=== PATIENT | female | born 1970 | race Native Hawaiian/Other Pacific Islander ===

== ENCOUNTER 2017-08-11 17:51 | Emergency (ER) | payer BC ==
[2017-08-11 18:13] VITALS: BMI 23.8
[2017-08-11 18:17] VITALS: TEMP 98.2; O2SAT 99
[2017-08-11 19:07] LABS: BASO # 0.02 K/mm3 (0.0-2.0); BASO % 0.1 % (0.0-3.0); EOS % 0.2 % (1.5-5.0); GRAN # 13.32 (1.4-6.5); GRAN % 85.4 % (50.0-68.0); HEMATOCRIT 41.4 % (36.0-48.0); LYMPH # 1.7 (1.2-3.4); MEAN CELL VOLUME 82.3 fl (80.0-105.0); MEAN CORPUSCULAR HEMOGLOBIN 29.8 pg (25.0-35.0); MEAN CORPUSCULAR HGB CONC 36.2 g/dl (31.0-37.0); MEAN PLATELET VOLUME 9.3 fl (7.0-11.0); MONO # 0.5 (0.1-0.6); MONO % 3.3 % (1.0-6.0); RED CELL DISTRIBUTION WIDTH 12.6 % (11.5-14.5); WHITE BLOOD COUNT 15.6 10^3/ul (4.5-11.0)
[2017-08-11 19:14] LABS: INR 0.99 (0.93-1.08); PARTIAL THROMBOPLASTIN TIME 29.9 Seconds (23.7-30.8)
[2017-08-11 19:21] LABS: URINE BILIRUBIN NEGATIVE (NEGATIVE); URINE BLOOD MODERATE (NEGATIVE); URINE GLUCOSE (UA) NEGATIVE (NEGATIVE); URINE KETONE 15 mg/dL (NEGATIVE); URINE LEUKOCYTE ESTERASE NEGATIVE Leu/uL (NEGATIVE); URINE PROTEIN NEGATIVE mg/dL (<30 mg/dL); URINE UROBILINOGEN 0.2 E.U./dL (<1 E.U./dL)
[2017-08-11 19:26] LABS: ALB/GLOB RATIO 1.1 (1.1-1.8); ALKALINE PHOSPHATASE 87 U/L (38-126); ALT/SGPT 32 U/L (7-56); AST/SGOT 38 U/L (14-36); BLOOD UREA NITROGEN 12 mg/dL (7-21); CALCIUM 10.2 mg/dL (8.4-10.5); CARBON DIOXIDE 30 mmol/L (21-33); CHLORIDE 91 mmol/L (95-110); GFR AFRICAN-AMERICAN > 60; GLUCOSE,RANDOM 130 mg/dL (70-110); SODIUM 138 mmol/L (132-148); TOTAL PROTEIN 9.3 g/dL (5.8-8.3)
[2017-08-11 19:28] LABS: URINE APPEARANCE SL CLOUDY (CLEAR); URINE COLOR YELLOW (YELLOW)
[2017-08-11 19:31] LABS: URINE EPITHELIAL CELLS 0 - 2 /hpf (0-5); URINE WBC 0 - 2 /hpf (0-6)
[2017-08-11 20:09] VITALS: BP 154/82; PULSE 89; RESP 16
--- NOTE | 2017-08-11 20:30 | ED PDOC ---
Arrival/HPI - General Chief Complaint: Female Genitourinary Time Seen by Provider: 08/11/17 18:23 Historian: Patient - History of Present Illness Narrative History of Present Illness (Text): 08/11/17 20:31 A 47 year old female, whose past medical history includes uterine prolapse, presents to the emergency department complaining of suprapubic pain. Patient reports she went to [facility] for yearly routine pap smear exam. Notes that she had swab done and then reduced uterine prolapse. Patient felt fine and went home. At home she reports sudden, onset suprapubic pain, described as intense and constant. Patient also feels she has to go to the bathroom, but no urine comes out. No similar symptoms in the past. No urinary incontinence, back pain, nausea , vomiting or any other complaints at this time. Symptom Onset: Sudden Symptom Course: Unchanged Activities at Onset: Rest Context: Home Past Medical History - Provider Review Nursing Documentation Reviewed: Yes - Infectious Disease Hx of Infectious Diseases: None - Cardiac Hx Hypertension: Yes - Psychiatric Hx Substance Use: No - Surgical History Hx Cholecystectomy: Yes - Anesthesia Hx Anesthesia: Yes Hx Anesthesia Reactions: No Hx Malignant Hyperthermia: No Family/Social History - Physician Review Nursing Documentation Reviewed: Yes Family/Social History: No Known Family HX Smoking Status: Never Smoked Hx Alcohol Use: Yes Frequency of alcohol use: Socially Hx Substance Use: No Allergies/Home Meds Allergies/Adverse Reactions: Allergies No Known Allergies Allergy (Verified 08/11/17 18:12) Home Medications: Home Meds Medication Instructions Recorded Confirmed amLODIPine [Norvasc] 1 tab PO DAILY 08/11/17 08/11/17 hydroCHLOROthiazide [Hydrodiuril] 1 tab PO DAILY 08/11/17 08/11/17 Review of Systems - Physician Review All systems were reviewed & negative as marked: Yes - Review of Systems Gastrointestinal: Abdominal Pain (suprapubic). absent: Nausea, Vomiting Musculoskeletal: absent: Back Pain Physical Exam Vital Signs Reviewed: Yes Vital Signs Temp Pulse Resp BP Pulse Ox 08/11/17 20:08 89 16 154/82 H 99 08/11/17 18:17 98.2 F 97 H 18 155/94 H 99 Temperature: Afebrile Blood Pressure: Hypertensive Pulse: Regular Respiratory Rate: Normal Appearance: Positive for: Other (crying) Pain Distress: Moderate Mental Status: Positive for: Alert and Oriented X 3 - Systems Exam Head: Present: Atraumatic, Normocephalic Pupils: Present: PERRL Extroacular Muscles: Present: EOMI Conjunctiva: Present: Normal Mouth: Present: Moist Mucous Membranes Neck: Present: Normal Range of Motion Respiratory/Chest: Present: Clear to Auscultation, Good Air Exchange. No: Respiratory Distress, Accessory Muscle Use Cardiovascular: Present: Regular Rate and Rhythm, Normal S1, S2 Abdomen: Present: Tenderness (moderate suprapubic; palpable bladder), Normal Bowel Sounds. No: Distention, Peritoneal Signs Genitourinary/Pelvic Exam: Present: Other (noted uterine prolapse in vaginal canal) Back: Present: Normal Inspection Upper Extremity: Present: Normal Inspection. No: Cyanosis, Edema Lower Extremity: Present: Normal Inspection. No: Edema Neurological: Present: GCS=15, CN II-XII Intact, Speech Normal Skin: Present: Warm, Dry, Normal Color. No: Rashes Psychiatric: Present: Alert, Oriented x 3, Normal Insight, Normal Concentration Medical Decision Making ED Course and Treatment: 08/11/17 20:27 Impression: A 47 year old female with suprapubic pain. Plan: -- US pelvis -- labs -- Urinalysis -- Reassess and disposition Progress Notes: Comer immediately inserted and yielded 600 cc urine. Patient developed immediate relief. On re-evaluation, patient feels much improved, still reports of minor discomfort, but is now resting comfortably in bed in no distress. Abdomen is soft with mild suprapubic tenderness, no guarding or rebound. Labs reviewed : WBC 15.6, K is 3, UA (-) for infection. KCL 40 mEq PO ordered. Patient sent to US. Patient returned from US. Her comer yielded a total of 1500 cc of urine. Patient still feeling much improved, reports no abdominal pain at this time. US results reviewed. Comer removed. US Pelvis Complete, Transabdominal FINDINGS: Uterus/cervix: Uterus measures 9.0 x 4.3 x 6.0 cm in size. Uterine prolapse. No myometrial mass. Endometrium: 0.64 cm in thickness. Right ovary: 2.6 x 2.3 x 2.3 cm in size. No mass. Normal flow. Left ovary: 2.8 x 3.3 x 2.6 cm in size. 1.4 x 2.2 x 1.3 cm hypoechoic lesion. Normal flow. Free fluid: No significant free fluid. Bladder: Unremarkable as visualized. IMPRESSION: 1. Probable LEFT ovarian cyst. 2. Uterine prolapse. Dictated and Authenticated by: Johnny Olivares MD 08/11/2017 9:08 PM Eastern Time ([place] & [place]) US results reviewed and d/w the patient. Based on history, exam and diagnostic results plan will be outpt f/u with ob/gyn tomorrow without fail, advised to return to the ER at any time for any new or worsening symptoms. Patient states she fully agrees with and understands discharge instructions. States that she agrees with the plan and disposition. Verbalized and repeated discharge instructions and plan. I have given the patient opportunity to ask any additional questions. - Lab Interpretations Lab Results: 08/11/17 18:40 08/11/17 18:40 Lab Results 08/11/17 19:10: Urine Color Yellow, Urine Appearance Sl cloudy, Urine pH 7.0, Ur Specific [place] 1.010, Urine Protein Negative, Urine Glucose (UA) Negative, Urine Ketones 15 H, Urine Blood Moderate H, Urine Nitrate Negative, Urine Bilirubin Negative, Urine Urobilinogen 0.2, Ur Leukocyte Esterase Negative, Urine RBC 10 - 15, Urine WBC 0 - 2, Ur Epithelial Cells 0 - 2 08/11/17 18:40: Sodium 138, Potassium 3.0 L, Chloride 91 L, Carbon Dioxide 30, Anion Gap 20, BUN 12, Creatinine 0.6, Est GFR ( Amer) > 60, Est GFR (Non- Af Amer) > 60, Random Glucose 130 H, Calcium 10.2, Total Bilirubin 1.0, AST 38 H , ALT 32, Alkaline Phosphatase 87, Total Protein 9.3 H, Albumin 4.9 H, Globulin 4.4, Albumin/Globulin Ratio 1.1 08/11/17 18:40: PT 10.7, INR 0.99, APTT 29.9 08/11/17 18:40: WBC 15.6 H, RBC 5.03, Hgb 15.0, Hct 41.4, MCV 82.3, MCH 29.8, MCHC 36.2, RDW 12.6, Plt Count 300, MPV 9.3, Gran % 85.4 H, Lymph % (Auto) 11.0 L, [place] % (Auto) 3.3, Eos % (Auto) 0.2 L, Baso % (Auto) 0.1, Gran # 13.32 H, Lymph # 1.7, [place] # 0.5, Eos # 0.0, Baso # 0.02 I have reviewed the lab results: Yes - RAD Interpretation Radiology Orders: 08/11/17 18:55 PELVIS ULTRASOUND [US] Stat - Medication Orders Current Medication Orders: Discontinued Medications Potassium Chloride (Potassium Chloride Oral Soln) 40 meq PO STAT STA Stop: 08/11/17 20:55 Last Admin: 08/11/17 21:14 Dose: 40 meq - PA / GRAIN THRESHER / Resident Statement MD/DO has reviewed & agrees with the documentation as recorded. - Scribe Statement The provider has reviewed the documentation as recorded by the Cale King Provider Scribe Attestation: All medical record entries made by the Scribe were at my direction and personally dictated by me. I have reviewed the chart and agree that the record accurately reflects my personal performance of the history, physical exam, medical decision making, and the department course for this patient. I have also personally directed, reviewed, and agree with the discharge instructions and disposition. Disposition/Present on Arrival - Present on Arrival Any Indicators Present on Arrival: No History of DVT/PE: No History of Uncontrolled Diabetes: No Urinary Catheter: No History of Decub. Ulcer: No History Surgical Site Infection Following: None - Disposition Have Diagnosis and Disposition been Completed?: Yes Diagnosis: Pelvic pain, Uterine prolapse, Postprocedural urinary retention Disposition: HOME/ ROUTINE Disposition Time: 21:00 Patient Plan: Discharge Condition: IMPROVED Discharge Instructions (ExitCare): Pelvic Pain in Women (ED), Uterine Prolapse (ED), Acute Urinary Retention in Women (ED) Print Language: [place] Additional Instructions: Thank you for letting us take care of you today. You were treated for pelvic pain, uterine prolapse, urinary retention. The emergency medical care you received today was directed at your acute symptoms. Return to the Emergency Department if your symptoms worsen, do not improve, or if you have any other problems. Please contact your ob/gyn doctor in 2 days for re-evaluation and follow up. Bring any paperwork you were given at discharge with you along with any medications you are taking to your follow up visit. Our treatment cannot replace ongoing medical care by a primary care provider (PCP) outside of the emergency department. Thank you for allowing the [facility] team to be part of your care today. If you had a urine culture: It will take several days for the results, if any change in treatment is needed we will contact you. Referrals: [facility], [Non-Staff] - Follow up with primary Forms: GIVVER ([place]ian), WORK NOTE
[2017-08-11] MEDS ORDERED: Potassium Chloride 20 mEq/15 ml LIQ UD PO STA (20:54)
--- NOTE | 2017-08-11 21:08 | US ---
EXAM: US Pelvis Complete, Transabdominal CLINICAL HISTORY: 47 years old, female; Pain; Pelvic pain; Additional info: Pelvic pain, R/O torsion TECHNIQUE: Real-time transabdominal pelvic ultrasound (complete) with image documentation. COMPARISON: No relevant prior studies available. FINDINGS: Uterus/cervix: Uterus measures 9.0 x 4.3 x 6.0 cm in size. Uterine prolapse. No myometrial mass. Endometrium: 0.64 cm in thickness. Right ovary: 2.6 x 2.3 x 2.3 cm in size. No mass. Normal flow. Left ovary: 2.8 x 3.3 x 2.6 cm in size. 1.4 x 2.2 x 1.3 cm hypoechoic lesion. Normal flow. Free fluid: No significant free fluid. Bladder: Unremarkable as visualized. IMPRESSION: 1. Probable LEFT ovarian cyst. 2. Uterine prolapse.
== END 2017-08-11 21:53 | disposition home or self-care (01) ==
LOC: ED 17:51
DX: N81.4 Uterovaginal prolapse, unspecified (principal); N99.89 Other postprocedural complications and disorders of genitourinary system; R33.8 Other retention of urine; R10.2 Pelvic and perineal pain